=== PATIENT | male | born 1995 | race Two or more races ===

== ENCOUNTER 2021-02-26 20:29 | Emergency (ER) | payer SELFPAY ==
[~2021-02-26] VITALS: Ht 172.7 cm; Wt 131.5 kg
[2021-02-26 23:15] VITALS: BP 133/80
== END 2021-02-26 23:18 | disposition home or self-care (01) ==
LOC: ER 20:31
DX: S93.401A Sprain of unspecified ligament of right ankle, initial encounter (principal); X50.0XXA Overexertion from strenuous movement or load, initial encounter; Y93.89 Activity, other specified; Y92.89 Other specified places as the place of occurrence of the external cause; Y99.8 Other external cause status
CPT/HCPCS: 73610